=== PATIENT | male | born 1950 | race Caucasian/White ===

== ENCOUNTER 2018-01-30 01:05 | Emergency (ER) | payer MEDICARE, OTHER, SELFPAY ==
[2018-01-30 01:06] VITALS: BP 184/86; PULSE 93; RESP 17; TEMP 37.1; O2SAT 93; BMI 48.6
--- NOTE | 2018-01-30 01:24 | ED.VISSUMM ---
- ER Visit Summary Date of Service: 01/30/18 Chief Complaint: [Left ear pain] History of Present Illness: The patient is a 67 M [presents the emergency department with pain in his left ear that started 2-3 days ago. Patient states that he developed drainage from the left ear 2-3 days ago. Patient denies any fever. Patient states that he has had some problems with that left ear and about 8 months ago had tympanostomy tube placed in that ear. Patient is visiting here from [place] and his physicians are all in [place]. Patient has a history of diabetes, hypertension, diverticulitis. Patient states that he normally uses earplugs when he showers but a couple days ago he did not have the earplugs and thinks he may have gotten some water in his ear.] Physical Examination: [MIKA-MEDARDORMARCELLE PARRAMI. Cranial nerves II through XII grossly intact. Right TM clear. Left ear-patient has noted drainage from the left ear canal with significant edema and I am unable to visualize the left eardrum. Patient has pain with traction on the pinna. No tenderness or erythema noted over the mastoid.. Mucous membranes moist. No adenopathy. Cardiovascular-regular rate and rhythm without murmur or ectopy Lungs-clear to auscultation, chest wall stable without crepitus or subcu emphysema Abdomen-normoactive bowel sounds, soft, nontender, no rebound or rigidity, no peritoneal signs. Extremities-intact ?4, normal range of motion, normal pulses, atraumatic] Test Results: [None indicated] Emergency Department Course and Treatment: [Patient had an ear wick placed to the left ear and was started on Cortisporin otic suspension as we do not have Ciprodex in the ER. Patient also started on Augmentin and [place] for pain.] Treatment Plan: [I will write the patient a prescription for Ciprodex, Augmentin, and [place]. Patient will be given a referral to ENT on-call.] Disposition: [Discharged home in stable condition]. Patient to return if fever, worsening pain, or condition should worsen in any way. Impression: [Left otitis externa] This note was generated with [employer] software. It may contain incorrect words, spelling, and punctuation that were not noted in review of the chart prior to signing ED Disposition - Plan for ED Patient: Chief Complaint: Ear Problem Referrals: [facility] Doctor,Out of [Primary Care Provider] -
--- NOTE | 2018-01-30 01:27 | ED.DCSUM_ITS ---
- ER Visit Summary Date of Service: 01/30/18 Chief Complaint: [Left ear pain] History of Present Illness: The patient is a 67 M [presents the emergency department with pain in his left ear that started 2-3 days ago. Patient states that he developed drainage from the left ear 2-3 days ago. Patient denies any fever. Patient states that he has had some problems with that left ear and about 8 months ago had tympanostomy tube placed in that ear. Patient is visiting here from [place] and his physicians are all in [place]. Patient has a history of diabetes, hypertension, diverticulitis. Patient states that he normally uses earplugs when he showers but a couple days ago he did not have the earplugs and thinks he may have gotten some water in his ear.] Physical Examination: [MIKA-MEDARDORMARCELLE PARRAMI. Cranial nerves II through XII grossly intact. Right TM clear. Left ear-patient has noted drainage from the left ear canal with significant edema and I am unable to visualize the left eardrum. Patient has pain with traction on the pinna. No tenderness or erythema noted over the mastoid.. Mucous membranes moist. No adenopathy. Cardiovascular-regular rate and rhythm without murmur or ectopy Lungs-clear to auscultation, chest wall stable without crepitus or subcu emphysema Abdomen-normoactive bowel sounds, soft, nontender, no rebound or rigidity, no peritoneal signs. Extremities-intact ?4, normal range of motion, normal pulses, atraumatic] Test Results: [None indicated] Emergency Department Course and Treatment: [Patient had an ear wick placed to the left ear and was started on Cortisporin otic suspension as we do not have Ciprodex in the ER. Patient also started on Augmentin and [place] for pain.] Treatment Plan: [I will write the patient a prescription for Ciprodex, Augmentin , and [place]. Patient will be given a referral to ENT on-call.] Disposition: [Discharged home in stable condition]. Patient to return if fever , worsening pain, or condition should worsen in any way. Impression: [Left otitis externa] This note was generated with [employer] software. It may contain incorrect words, spelling, and punctuation that were not noted in review of the chart prior to signing ED Disposition - Plan for ED Patient: Chief Complaint: Ear Problem Referrals: [facility] Doctor,Out of [Primary Care Provider] -
--- NOTE | 2018-01-30 01:27 | ED.DEP ---
ED Disposition - Plan for ED Patient: Chief Complaint: Ear Problem Instructions: ED Otitis Externa Prescriptions: Amox/Clavulanate Tablet [Augmentin Tablet] 875 mg PO Q12H #20 tab Hydrocodone/Acetaminophen [[place] 5-325 Tablet] 1 - 2 ea PO 4X/DAY PRN PRN 5 Days #20 tab PRN Reason: Pain Ciprofloxacin HCl/Dexameth [Ciprodex Otic Suspension] 2 ml LEFT EAR BID #1 drops.susp Referrals: [facility] Doctor,Out of [Primary Care Provider] - Bubba Topete MD [STAFF PHYSICIAN] - 3-5 Days
--- NOTE | 2018-01-30 01:30 | DCINST.ED_ITS ---
ED Disposition - Plan for ED Patient: Chief Complaint: Ear Problem Instructions: ED Otitis Externa Prescriptions: Amox/Clavulanate Tablet [Augmentin Tablet] 875 mg PO Q12H #20 tab Hydrocodone/Acetaminophen [[place] 5-325 Tablet] 1 - 2 ea PO 4X/DAY PRN PRN 5 Days #20 tab PRN Reason: Pain Ciprofloxacin HCl/Dexameth [Ciprodex Otic Suspension] 2 ml LEFT EAR BID #1 drops.susp Referrals: [facility] Doctor,Out of [Primary Care Provider] - Bubba Topete MD [STAFF PHYSICIAN] - 3-5 Days
[2018-01-30] MEDS: Amox/Clavulanate 875 MG Tablet PO (01:47)
[2018-01-30] MEDS: Neomycin Sulfate/Polymyxin/Hc Susp 10 ML Bottle 4 DRP OTIC (01:47)
[2018-01-30] MEDS: HYDROcodone Bitartrate/Apap 5/325 Tablet PO ×2 (01:48→01:50)
[2018-01-30 01:53] VITALS: BP 157/87; PULSE 80; RESP 18; O2SAT 100
== END 2018-01-30 01:56 | disposition home or self-care (01) ==
LOC: ED 01:29
PROVIDERS: Emergency Provider Emergency Medicine
DX: H60.92 Unspecified otitis externa, left ear (principal); E11.9 Type 2 diabetes mellitus without complications; I10 Essential (primary) hypertension; Z87.19 Personal history of other diseases of the digestive system; Z90.89 Acquired absence of other organs; Z90.49 Acquired absence of other specified parts of digestive tract; Z79.82 Long term (current) use of aspirin; Z79.84 Long term (current) use of oral hypoglycemic drugs; Z79.899 Other long term (current) drug therapy
CPT/HCPCS: 99283